=== PATIENT | female | born 1955 | race Caucasian/White ===

== ENCOUNTER → 2020-11-22 09:43 | Outpatient (BNVA) | payer OTHER, SELFPAY | PROVIDERS: PCP Internal Medicine; Visit Provider Nurse Practitioner Gerontology ==

== ENCOUNTER → 2021-01-30 12:47 | Outpatient (BNVA) | payer MEDICARE, SELFPAY | PROVIDERS: PCP Internal Medicine; Visit Provider Nurse Practitioner Gerontology | DX: E11.65 Type 2 diabetes mellitus with hyperglycemia (principal); E11.40 Type 2 diabetes mellitus with diabetic neuropathy, unspecified; Z79.4 Long term (current) use of insulin; I10 Essential (primary) hypertension; E78.5 Hyperlipidemia, unspecified; E66.01 Morbid (severe) obesity due to excess calories; Z68.42 Body mass index [BMI] 45.0-49.9, adult | CPT/HCPCS: 82947; 99212 ==

== ENCOUNTER → 2021-03-06 07:40 | Outpatient (BNVA) | payer MEDICARE, SELFPAY | PROVIDERS: PCP Internal Medicine; Visit Provider Internal Medicine | CPT/HCPCS: Q3014 ==

== ENCOUNTER 2021-03-10 07:49 | Outpatient (REF) | payer MEDICARE, SELFPAY ==
[2021-03-10 11:09] LABS: Creatinine Urine 70.43 mg/dL; Microalbum/Creatinine Ratio Ur 9.9 ug/mg cr
[2021-03-10 11:10] LABS: Alanine Aminotransferase 28 U/L (0-31); Albumin Level 4.3 g/dL (3.5-5.0); Alkaline Phosphatase 101 U/L (39-117); Anion Gap 14 (12-20); Aspartate Amino Transferase 19 U/L (5-31); Bilirubin Total 0.7 mg/dL (0.0-1.0); Blood Urea Nitrogen 31 mg/dL (9-16); Calcium 9.3 mg/dL (8.4-10.2); Carbon Dioxide 24 mmol/L (22-29); Chloride 106 mmol/L (96-108); Cholesterol 155 mg/dL; Estimated Glomerular Filt Rate > 60; Glucose Fasting 120 mg/dL (60-99); HDL Cholesterol 41 mg/dL; LDL Cholesterol Calculated 82 mg/dl; Potassium 4.9 mmol/L (3.3-5.1); Sodium 139 mmol/L (135-145); Total Protein 6.9 g/dL (6.5-8.0); Triglycerides 164 mg/dL
[2021-03-10 12:08] LABS: Vitamin B12 495 pg/mL (200-900)
== END 2021-03-10 07:50 | disposition home or self-care (01) ==
LOC: HO.WFDLDS 07:49
PROVIDERS: Visit Provider Nurse Practitioner Gerontology
DX: E11.40 Type 2 diabetes mellitus with diabetic neuropathy, unspecified (principal); Z79.4 Long term (current) use of insulin
CPT/HCPCS: 36415; 80053; 80061; 82043; 82306; 82607

== ENCOUNTER 2021-03-12 14:16 | Outpatient (REF) | payer MEDICARE, SELFPAY ==
--- NOTE | ~2021-03-12 | US_ITS ---
EXAMINATION: US THYROID CLINICAL INFORMATION: Nontoxic single thyroid nodule. COMPARISON: None TECHNIQUE: Linear transducer sykes-scale and color Doppler examination with attention to the region of the thyroid. FINDINGS: SIZE: Measurements of the thyroid lobes and nodules are given in sagittal, anteroposterior and transverse dimensions respectively. Right Thyroid Lobe: 4.9 x 2.6 x 1.8 cm, volume 12.1 mL. Parenchyma: The gland echotexture is heterogeneous. Thyroid vascularity is normal. Left Thyroid Lobe: 5.2 x 2.1 x 2.2 cm, volume 12.5 mL. Parenchyma: The gland echotexture is heterogeneous. Thyroid vascularity is normal. Isthmus: 0.5 cm in maximum AP dimension. Estimated total number of nodules greater than or equal to 1 cm: 3. Credit Collections Analyst nodules are described as follows: 1. Location: Left lower pole. Size: 1.7 x 1.4 x 1.7 cm, volume 2.2 mL. Nodule characteristics: Composition: Solid/almost completely solid (2). Echogenicity: Hyperechoic (1). Shape: Not taller than wide (0). Margins: Smooth (0). Echogenic Foci: None (0). ACR TI-RADS total points: 3 ACR TI-RADS category: 3 2. Location: Left upper pole. Size: 1.3 x 0.6 x 0.7 cm, volume 0.3 mL. Nodule characteristics: Composition: Solid/almost completely solid (2). Echogenicity: Isoechoic (1). Shape: Not taller than wide (0). Margins: Ill-defined (0). Echogenic Foci: None (0). ACR TI-RADS total points: 3 ACR TI-RADS category: 3 3. Location: Right mid pole. Size: 3.7 x 2.0 x 1.6 cm, volume 6.2 mL. Nodule characteristics: Composition: Solid/almost completely solid (2). Echogenicity: Isoechoic (1). Shape: Taller than wide (3). Margins: Ill-defined (0). Echogenic Foci: None (0). ACR TI-RADS total points: 6 ACR TI-RADS category: 4 NODES: No lymphadenopathy is seen in the tissue surrounding the thyroid gland. US/US thyroid IMPRESSION: Enlarged heterogeneous thyroid gland with bilateral thyroid nodules. Fine needle aspiration of the largest nodule in the right mid lobe and continued ultrasound follow-up recommended as described below. ACR TI-RADS RECOMMENDATION REFERENCE: Ultrasound-guided fine-needle aspiration, followup ultrasound, no further follow up. * TR1 (0 point) and TR 2 (2 points): No FNA or follow up * TR3 (3 points): FNA if more than or equal to 2.5 cm in maximum dimension, followup ultrasound in 1, 3 and 5 years if 1.5 to 2.4 cm in maximum dimension. * TR4 (4-6 points): FNA if more than or equal to 1.5 cm in maximum dimension, followup ultrasound in 1, 2, 3 and 5 years if 1 to 1.4 cm in maximum dimension. * TR5 (more than or equal to 7 points): FNA if more than or equal to 1 cm in maximum dimension, followup ultrasound every year for 5 years if 0.5 to 0.9 cm in maximum dimension. * TR3, TR4 or TR5 nodules that are below the size threshold for follow up receive no follow up.
== END 2021-03-12 14:17 | disposition home or self-care (01) ==
LOC: HO.US 14:16
PROVIDERS: Visit Provider Internal Medicine
DX: E04.1 Nontoxic single thyroid nodule (principal)
CPT/HCPCS: 76536

== ENCOUNTER → 2021-03-17 07:53 | Outpatient (BNVA) | payer MEDICARE, SELFPAY | PROVIDERS: PCP Internal Medicine; Visit Provider Nurse Practitioner Gerontology | DX: E11.65 Type 2 diabetes mellitus with hyperglycemia (principal); E11.40 Type 2 diabetes mellitus with diabetic neuropathy, unspecified; Z79.4 Long term (current) use of insulin; I10 Essential (primary) hypertension; E78.5 Hyperlipidemia, unspecified; E66.01 Morbid (severe) obesity due to excess calories; Z68.42 Body mass index [BMI] 45.0-49.9, adult | CPT/HCPCS: 82947; 99212 ==

== ENCOUNTER 2021-03-18 08:12 | Outpatient (REF) | payer MEDICARE, SELFPAY ==
[2021-03-18 11:37] LABS: Free T4 (Free Thyroxine) 0.89 ng/dL (0.71-1.85); Thyroid Stimulating Hormone 0.63 uIU/mL (0.32-4.0)
== END 2021-03-18 08:13 | disposition home or self-care (01) ==
LOC: HO.WFDLDS 08:12
PROVIDERS: Visit Provider Internal Medicine
DX: E04.1 Nontoxic single thyroid nodule (principal)
CPT/HCPCS: 36415; 84439; 84443

== ENCOUNTER 2021-04-24 08:41 | Outpatient (REF) | payer MEDICARE, SELFPAY ==
--- NOTE | 2021-04-24 09:32 | P.BOP_ITS ---
Brief Operative Note Date of Service: 04/24/21 Surgeon: Mariama Severino, DO This is doctor Mariama Severino. This is an ultrasound-guided fine-needle aspiration report. Date of Examination: 04/24/2021 Indication: Multinodular Thyroid Porcedure: Procedure was explained to the patient. Alternatives, the risk and benefits were discussed. Written consent was obtained. A time-out was also obtained. After sterile preparation, fine-needle aspiration of 1.7 cm left lower pole thyroid nodule was performed using direct ultrasound guidance to confirm accurate needle placement. Three aspirations were made using 25 gauge needles. Samples were submitted for cytology. One pass was dedicated for [employer] sequencing health safety and environment manager testing. The patient tolerated the procedure well. Aftercare instructions were provided. Impression: Uncomplicated fine needle aspiration biopsy of a 1.7 cm left lower pole thyroid nodule under ultrasound guidance. Was an Leather Belt Shaper used for this Procedure?: No Estimated blood loss (mL): 0
[2021-04-24] MEDS: Lidocaine HCl 1 % MPF 5 ML VIAL SUBCUT (11:10)
== END 2021-04-24 08:42 | disposition home or self-care (01) ==
LOC: HO.US 08:41
PROVIDERS: Visit Provider Internal Medicine
DX: E04.1 Nontoxic single thyroid nodule (principal)
CPT/HCPCS: 10005; 88172; 88173

== ENCOUNTER 2021-04-28 06:59 | Outpatient (REF) | payer MEDICARE, SELFPAY ==
[2021-04-28 09:23] LABS: Thyroid Stimulating Hormone 0.27 uIU/mL (0.32-4.0)
[2021-04-29 21:26] LABS: Thyroglobulin Antibodies <1 IU/mL (< or = 1); Thyroid Peroxidase Antibodies <1 IU/mL (<9)
[2021-04-29 23:27] LABS: Adrenocorticotropic Hormone <5 pg/mL (6-50)
[2021-05-06 19:11] LABS: Dexamethasone 424 ng/dL
== END 2021-04-28 07:00 | disposition home or self-care (01) ==
LOC: HO.LAB 06:59
PROVIDERS: PCP Internal Medicine; Visit Provider Internal Medicine
DX: E66.01 Morbid (severe) obesity due to excess calories (principal)
CPT/HCPCS: 36415; 80299; 82024; 82533; 84443; 86376; 86800

== ENCOUNTER → 2021-05-08 13:12 | Outpatient (BNVA) | payer MEDICARE, SELFPAY | PROVIDERS: PCP Internal Medicine; Visit Provider Internal Medicine | DX: E04.1 Nontoxic single thyroid nodule (principal); I10 Essential (primary) hypertension; E78.5 Hyperlipidemia, unspecified; E11.42 Type 2 diabetes mellitus with diabetic polyneuropathy; E11.65 Type 2 diabetes mellitus with hyperglycemia; E55.9 Vitamin D deficiency, unspecified; E66.01 Morbid (severe) obesity due to excess calories; Z68.42 Body mass index [BMI] 45.0-49.9, adult | CPT/HCPCS: Q3014 ==

== ENCOUNTER → 2021-10-09 09:26 | Outpatient (BNVA) | payer MEDICARE, SELFPAY | PROVIDERS: PCP Internal Medicine; Visit Provider Nurse Practitioner Gerontology | DX: E11.65 Type 2 diabetes mellitus with hyperglycemia (principal); E11.40 Type 2 diabetes mellitus with diabetic neuropathy, unspecified; E78.5 Hyperlipidemia, unspecified; E66.01 Morbid (severe) obesity due to excess calories; I10 Essential (primary) hypertension; R79.89 Other specified abnormal findings of blood chemistry; Z79.4 Long term (current) use of insulin; Z68.42 Body mass index [BMI] 45.0-49.9, adult | CPT/HCPCS: Q3014 ==

== ENCOUNTER 2021-10-15 07:40 | Outpatient (REF) | payer MEDICARE, SELFPAY ==
[2021-10-15 11:56] LABS: Estimated Average Glucose 183 mg/dL
[2021-10-15 12:26] LABS: Free T4 (Free Thyroxine) 0.92 ng/dL (0.71-1.85); Thyroid Stimulating Hormone 1.28 uIU/mL (0.32-4.0)
== END 2021-10-15 07:41 | disposition home or self-care (01) ==
LOC: HO.WFDLDS 07:40
PROVIDERS: Internal Medicine; Visit Provider Nurse Practitioner Gerontology
DX: E04.1 Nontoxic single thyroid nodule (principal); E11.40 Type 2 diabetes mellitus with diabetic neuropathy, unspecified; Z79.4 Long term (current) use of insulin
CPT/HCPCS: 36415; 83036; 84439; 84443

== ENCOUNTER → 2021-12-18 12:50 | Outpatient (BNVA) | payer MEDICARE, SELFPAY | PROVIDERS: PCP Internal Medicine; Visit Provider Internal Medicine | DX: E04.1 Nontoxic single thyroid nodule (principal); E55.9 Vitamin D deficiency, unspecified; E66.01 Morbid (severe) obesity due to excess calories | CPT/HCPCS: Q3014 ==

== ENCOUNTER → 2022-01-12 09:43 | Outpatient (BNVA) | payer MEDICARE, SELFPAY | PROVIDERS: PCP Internal Medicine; Visit Provider Nurse Practitioner Gerontology | DX: E11.40 Type 2 diabetes mellitus with diabetic neuropathy, unspecified (principal); E11.65 Type 2 diabetes mellitus with hyperglycemia; E78.5 Hyperlipidemia, unspecified; E66.01 Morbid (severe) obesity due to excess calories; I10 Essential (primary) hypertension; Z68.42 Body mass index [BMI] 45.0-49.9, adult; Z79.4 Long term (current) use of insulin | CPT/HCPCS: 82947; 83036; 99212 ==

== ENCOUNTER 2022-01-14 07:03 | Outpatient (REF) | payer MEDICARE, SELFPAY ==
[2022-01-14 12:08] LABS: Estimated Average Glucose 197 mg/dL; Hemoglobin A1c % 8.5 %
[2022-01-14 12:14] LABS: Alanine Aminotransferase 23 U/L (0-31); Albumin Level 4.1 g/dL (3.5-5.0); Alkaline Phosphatase 111 U/L (39-117); Anion Gap 13 (12-20); Aspartate Amino Transferase 16 U/L (5-31); Bilirubin Total 0.5 mg/dL (0.0-1.0); Blood Urea Nitrogen 29 mg/dL (9-16); Calcium 9.6 mg/dL (8.4-10.2); Carbon Dioxide 23 mmol/L (22-29); Chloride 109 mmol/L (96-108); Cholesterol 150 mg/dL; Estimated Glomerular Filt Rate > 60; Glucose Random 160 mg/dL (60-115); HDL Cholesterol 38 mg/dL; LDL Cholesterol Calculated 83 mg/dl; Potassium 5.1 mmol/L (3.3-5.1); Sodium 140 mmol/L (135-145); Total Protein 6.7 g/dL (6.5-8.0); Triglycerides 149 mg/dL
[2022-01-14 12:22] LABS: Thyroid Stimulating Hormone 1.28 uIU/mL (0.32-4.0)
[2022-01-14 13:47] LABS: Creatinine Urine 66.95 mg/dL; Microalbum/Creatinine Ratio Ur 10.4 ug/mg cr
[2022-01-15 07:10] LABS: LDL Cholesterol Direct 93 mg/dL (<100)
== END 2022-01-14 07:04 | disposition home or self-care (01) ==
LOC: HO.WFDLDS 07:03
PROVIDERS: Visit Provider Nurse Practitioner Gerontology
DX: E11.40 Type 2 diabetes mellitus with diabetic neuropathy, unspecified (principal); Z79.4 Long term (current) use of insulin
CPT/HCPCS: 36415; 80053; 80061; 82043; 83036; 83721; 84439; 84443

== ENCOUNTER 2022-07-03 15:57 | Outpatient (REF) | payer MEDICARE, SELFPAY ==
--- NOTE | ~2022-07-03 | US_ITS ---
EXAMINATION: US THYROID CLINICAL INFORMATION: Nontoxic single thyroid nodule. COMPARISON: Thyroid ultrasound 03/12/2021. Ultrasound-guided thyroid biopsy 04/24/2021. TECHNIQUE: Linear transducer grayscale and color Doppler examination with attention to the region of the thyroid. FINDINGS: SIZE: Measurements of the thyroid lobes and nodules are given in sagittal, anteroposterior and transverse dimensions respectively. Right Thyroid Lobe: 5.7 x 2.2 x 1.8 cm, volume 11.8 mL. Previously 4.9 x 2.6 x 1.8 cm, volume 12.1 mL. Parenchyma: The gland echotexture is heterogeneous. Thyroid vascularity is normal. Left Thyroid Lobe: 5.5 x 2.1 x 2.1 cm, volume 12.7 mL. Previously 5.2 x 2.1 x 2.2 cm, volume 12.5 mL. Parenchyma: The gland echotexture is heterogeneous. Thyroid vascularity is normal. Isthmus: 0.6 cm in maximum AP dimension. Previously 0.5 cm. Estimated total number of nodules greater than or equal to 1 cm: 2. comparison with previous exam is difficult. Measurement differences may be due to interobserver variation of nodule borders. Cell Repairer nodules are described as follows: 1. Location: Left lower pole. Size: 1.1 x 0.9 x 0.8 cm, volume 0.4 mL. Previously: 1.7 x 1.4 x 1.7 cm, volume 2.2 mL. Nodule characteristics: Composition: Solid (2). Echogenicity: Hyperechoic (1). Shape: Not taller than wide (0). Margins: Smooth (0). Echogenic Foci: None (0). ACR TI-RADS total points: 3 Previous: 3 ACR TI-RADS category: 3 Previous: 3 Significant change in size (>/= 20% in 2 dimensions and minimal increase of 2 mm or 50% or greater increase in volume): Change in features: Change in ACR TI-RADS risk category: 2. Location: Right mid pole. Size: 2.5 x 1.8 x 1.2 cm, volume 2.8 mL. Previously: 3.7 x 2.0 x 1.6 cm, volume 6.2 mL. Nodule characteristics: Composition: Solid (2). Echogenicity: Isoechoic (1). Shape: Taller than wide (3). Margins: Ill-defined (0). Echogenic Foci: None (0). ACR TI-RADS total points: 6 Previous: 6 ACR TI-RADS category: 4 Previous: 4 Significant change in size (>/= 20% in 2 dimensions and minimal increase of 2 mm or 50% or greater increase in volume): Change in features: Change in ACR TI-RADS risk category: 3. Location: Isthmus/upper pole left. Size: 0.3 x 0.3 x 0.4 cm, volume 0.02 mL. Previously: Not documented. Nodule characteristics: Composition: Solid (2). Echogenicity: Hypoechoic (2). Shape: Not taller than wide (0). Margins: Smooth (0). Echogenic Foci: None (0). ACR TI-RADS total points: 4 ACR TI-RADS category: 4 4. Location: Left mid pole. Size: 0.6 x 0.7 x 0.8 cm, volume 0.16 mL. Previously: Not documented. Nodule characteristics: Composition: Solid/almost completely solid (2). Echogenicity: Hypoechoic (2). Shape: Not taller than wide (0). Margins: Smooth (0). Echogenic Foci: None (0). ACR TI-RADS total points: 4 ACR TI-RADS category: 4 NODES: No lymphadenopathy is seen in the tissue surrounding the thyroid gland. US/US thyroid IMPRESSION: Enlarged heterogeneous thyroid gland. Bilateral thyroid nodules. Comparison with previous exam is difficult. Measurement differences may be due to interobserver variation. ACR TI-RADS RECOMMENDATION REFERENCE: Ultrasound-guided fine-needle aspiration, followup ultrasound, no further follow up. * TR1 (0 point) and TR 2 (2 points): No FNA or follow up * TR3 (3 points): FNA if more than or equal to 2.5 cm in maximum dimension, followup ultrasound in 1, 3 and 5 years if 1.5 to 2.4 cm in maximum dimension. * TR4 (4-6 points): FNA if more than or equal to 1.5 cm in maximum dimension, followup ultrasound in 1, 2, 3 and 5 years if 1 to 1.4 cm in maximum dimension. * TR5 (more than or equal to 7 points): FNA if more than or equal to 1 cm in maximum dimension, followup ultrasound every year for 5 years if 0.5 to 0.9 cm in maximum dimension. * TR3, TR4 or TR5 nodules that are below the size threshold for follow up receive no follow up.
== END 2022-07-03 15:58 | disposition home or self-care (01) ==
LOC: HO.US 15:57
PROVIDERS: Visit Provider Internal Medicine
DX: E04.1 Nontoxic single thyroid nodule (principal)
CPT/HCPCS: 76536

== ENCOUNTER 2022-08-21 11:53 | Outpatient (REF) | payer MEDICARE, SELFPAY ==
[2022-08-21 15:54] LABS: Free T4 (Free Thyroxine) 0.85 ng/dL (0.71-1.85); Thyroid Stimulating Hormone 1.06 uIU/mL (0.32-4.0)
== END 2022-08-21 11:54 | disposition home or self-care (01) ==
LOC: HO.WFDLDS 11:53
PROVIDERS: Visit Provider Internal Medicine
DX: E04.1 Nontoxic single thyroid nodule (principal)
CPT/HCPCS: 36415; 84439; 84443

== ENCOUNTER → 2022-08-24 10:43 | Outpatient (BNVA) | payer MEDICARE, SELFPAY | PROVIDERS: PCP Internal Medicine; Visit Provider Internal Medicine | DX: E04.1 Nontoxic single thyroid nodule (principal); E55.9 Vitamin D deficiency, unspecified; E66.01 Morbid (severe) obesity due to excess calories; Z68.42 Body mass index [BMI] 45.0-49.9, adult | CPT/HCPCS: 99212 ==

== ENCOUNTER → 2022-11-11 08:10 | Outpatient (BNVA) | payer MEDICARE, SELFPAY | PROVIDERS: PCP Internal Medicine; Visit Provider Internal Medicine | DX: E04.1 Nontoxic single thyroid nodule (principal); E55.9 Vitamin D deficiency, unspecified; E66.01 Morbid (severe) obesity due to excess calories; Z68.42 Body mass index [BMI] 45.0-49.9, adult | CPT/HCPCS: 82947; 83036; 99212 ==

== ENCOUNTER → 2023-02-10 08:24 | Outpatient (BNVA) | payer MEDICARE, SELFPAY | PROVIDERS: PCP Internal Medicine; Visit Provider Internal Medicine | DX: E11.65 Type 2 diabetes mellitus with hyperglycemia (principal); E78.5 Hyperlipidemia, unspecified; E04.1 Nontoxic single thyroid nodule; E55.9 Vitamin D deficiency, unspecified; E66.01 Morbid (severe) obesity due to excess calories; I10 Essential (primary) hypertension; Z79.4 Long term (current) use of insulin | CPT/HCPCS: 82947; 83036; 99212 ==

== ENCOUNTER 2023-02-10 09:34 | Outpatient (REF) | payer MEDICARE, SELFPAY ==
[2023-02-10 10:57] LABS: Alanine Aminotransferase 25 U/L (0-31); Albumin Level 3.9 g/dL (3.5-5.0); Alkaline Phosphatase 110 U/L (39-117); Anion Gap 12 (12-20); Aspartate Amino Transferase 19 U/L (5-31); Bilirubin Total 0.6 mg/dL (0.0-1.0); Blood Urea Nitrogen 21 mg/dL (9-16); Calcium 8.9 mg/dL (8.4-10.2); Carbon Dioxide 23 mmol/L (22-29); Chloride 108 mmol/L (96-108); Estimated Glomerular Filt Rate > 60; Glucose Random 190 mg/dL (60-115); Potassium 4.2 mmol/L (3.3-5.1); Sodium 139 mmol/L (135-145); Total Protein 6.2 g/dL (6.5-8.0)
== END 2023-02-10 09:35 | disposition home or self-care (01) ==
LOC: HO.10HDL 09:34
PROVIDERS: Visit Provider Internal Medicine
DX: E11.65 Type 2 diabetes mellitus with hyperglycemia (principal); Z79.4 Long term (current) use of insulin
CPT/HCPCS: 36415; 80053

== ENCOUNTER 2023-05-20 07:57 | Outpatient (REF) | payer MEDICARE, SELFPAY ==
[2023-05-20 14:19] LABS: Estimated Average Glucose 166 mg/dL; Hemoglobin A1c % 7.4 %
[2023-05-20 14:28] LABS: Alanine Aminotransferase 29 U/L (0-31); Albumin Level 4.1 g/dL (3.5-5.0); Alkaline Phosphatase 91 U/L (39-117); Anion Gap 15 (12-20); Aspartate Amino Transferase 22 U/L (5-31); Bilirubin Total 0.6 mg/dL (0.0-1.0); Blood Urea Nitrogen 21 mg/dL (9-16); Calcium 9.7 mg/dL (8.4-10.2); Carbon Dioxide 23 mmol/L (22-29); Chloride 106 mmol/L (96-108); Cholesterol 154 mg/dL; Estimated Glomerular Filt Rate > 60; Free T4 (Free Thyroxine) 0.86 ng/dL (0.71-1.85); Glucose Random 154 mg/dL (60-115); HDL Cholesterol 41 mg/dL; LDL Cholesterol Calculated 81 mg/dl; Potassium 4.5 mmol/L (3.3-5.1); Sodium 139 mmol/L (135-145); Thyroid Stimulating Hormone 1.34 uIU/mL (0.32-4.0); Total Protein 7.1 g/dL (6.5-8.0); Triglycerides 164 mg/dL; Vitamin D 25-OH Total 34.2 ng/mL (>30)
[2023-05-22 13:29] LABS: LDL Cholesterol Direct 90 mg/dL (<100)
== END 2023-05-20 07:58 | disposition home or self-care (01) ==
LOC: HO.WFDLDS 07:57
PROVIDERS: Visit Provider Internal Medicine
DX: E04.1 Nontoxic single thyroid nodule (principal); E55.9 Vitamin D deficiency, unspecified; E11.65 Type 2 diabetes mellitus with hyperglycemia; Z79.4 Long term (current) use of insulin
CPT/HCPCS: 36415; 80053; 80061; 82306; 83036; 83721; 84439; 84443

== ENCOUNTER 2023-06-02 07:36 | Outpatient (AMB) | payer MEDICARE, SELFPAY ==
--- NOTE | 2023-06-02 07:37 | A.OFFVIS_ITS ---
Intake Intake Visit Reasons: F/U T2DM Needs 1 hour Allergies exenatide [Byetta] Allergy (Unknown, Verified 06/02/23 07:48) nausea rosuvastatin [Crestor] Allergy (Unknown, Verified 06/02/23 07:48) Unknown dulaglutide [From Trulicity] Adverse Reaction (Mild, Verified 06/02/23 07:48) Nausea lisinopril Adverse Reaction (Unknown, Verified 06/02/23 07:48) Cough dust, trees Allergy (Unknown, Uncoded 06/02/23 07:48) rhinitis Medication List - Last Reconciled 06/02/23 by Mariama Severino DO amlodipine 10 mg PO DAILY atorvastatin 40 mg PO BEDTIME blood sugar diagnostic ([place] Verio test strips) four times a day blood-glucose meter ([place] Verio Reflect Meter) CHECK BLOOD GLUCOSE FOUR TIMES A DAY fluticasone propionate 50 mcg/actuation intranasal insulin NPH and regular human 100 unit/mL (70-30) (Humulin 70/30 U-100 Insulin) 55 units before breakfast, 50 units before dinner subcut 2 times a day; insulin syringe-needle U-100 (BD Insulin Syringe Ultra-Fine) As directed twice a day lancets (FreeStyle Lancets) As directed four times a day lancets (OneTouch Delica Lancets) As directed 4 x/day meloxicam 15 mg PO DAILY PRN metformin 500 mg PO DAILY 30 days metoprolol succinate ER 50 mg PO DAILY olmesartan 40 mg PO DAILY omeprazole 20 mg PO DAILY PRN pen needle, diabetic As directed semaglutide (Ozempic) 0.25 mg (0.368 mL) subcut QWEEK spironolactone 25 mg PO DAILY tizanidine 2 mg PO TID zolpidem 10 mg PO BEDTIME PRN HPI HPI Comments History of Present Illness Details 67 YO F with PMHx T2DM, HTN, HLD as well as a multinodular thyroid who is seen in F/U. She was previously followed by Radha De La Cruz. 1) T2DM: Initially diagnosed with T2DM in 1999. Was initially started on treatment with Metformin. Current regimen Metformin 500 mg PO daily, Ozempic 0.25 mg once a week and Humulin 70/30 50-55 BID. Checks sugars 1-2 times per day. Unable to download sugars today. Sugars are at goal am fasting. Reports low sugars never. Treats lows with juice or rapid sugar. Most recent A1C: 7.4% 05/20/2023, down from prior of 8.1%. Family history of T2DM in parents and siblings. Has eyes checked yearly, has retinopathy. Sees ophtho every 6 months for her retinal detachment. Has neuropathy, last foot exam 02/10/2023, sees podiatry. Denies nephropathy, on Olmesartan 40 mg PO daily. UAC 10.4 as measured on 01/14/2022. Has HLD, on Atorvastatin 40 mg PO daily. Last LDL 90 as measured on 05/20/2023. Denies CAD. Diet: Does not follow a low carbohydrate diet Weight: Stable Had diabetes education. 2) Multinodular Thyroid: She had an episode of palpitations with lightheadedness which prompted her to go to the ED.? She had a CTA of the head and neck 01/17/2021 which revealed a 1.3 cm hypodense nodule within the L lobe of the thyroid.? She was subsequently referred to Endocrinology. She underwent FNA biopsy of her LLP 1.7 cm thyroid nodule 04/24/2021 with benign cytology. Denies any compressive symptoms.? Also denies any symptoms of hyper or hypothyroidism. Denies any history of head or neck irradiation.? Reports her Mother had a goiter and had thyroid surgery, but she is unsure if there was any cancer.? She had labs that showed a low TSH, but this was completed immediately after her FNA biopsy.? Repeat labs WNL. She also had imaging that revealed a dorsocervical fat pad and concern for cus timothy's disease.? She underwent a 1 mg overnight DSST which was completely WNL. Thyroid US: 07/03/2022 Right Thyroid Lobe: 5.7 x 2.2 x 1.8 cm, volume 11.8 mL. Previously 4.9 x 2.6 x 1.8 cm, volume 12.1 mL. Parenchyma: The gland echotexture is heterogeneous. Thyroid vascularity is normal. Left Thyroid Lobe: 5.5 x 2.1 x 2.1 cm, volume 12.7 mL. Previously 5.2 x 2.1 x 2.2 cm, volume 12.5 mL. Parenchyma: The gland echotexture is heterogeneous. Thyroid vascularity is normal. Isthmus: 0.6 cm in maximum AP dimension. Previously 0.5 cm. Estimated total number of nodules greater than or equal to 1 cm: 2. comparison with previous exam is difficult. Measurement differences may be due to interobserver variation of nodule borders. Reconciliation Coordinator nodules are described as follows: 1.? Location: Left lower pole. ?? ? Size: 1.1 x 0.9 x 0.8 cm, volume 0.4 mL. ?? ? Previously: 1.7 x 1.4 x 1.7 cm, volume 2.2 mL. ?? ? Nodule characteristics: ?? ? Composition: Solid (2). ?? ? Echogenicity: Hyperechoic (1). ?? ? Shape: Not taller than wide (0). ?? ? Margins: Smooth (0). ?? ? Echogenic Foci: None (0). ?? ? ACR TI-RADS total points: 3 Previous: 3 ?? ? ACR TI-RADS category: 3 Previous: 3 ? Significant change in size (>/= 20% in 2 dimensions and minimal increase of 2 mm or 50% or greater increase in volume): ?? ? Change in features: ?? ? Change in ACR TI-RADS risk category: 2.? Location: Right mid pole. ?? ? Size: 2.5 x 1.8 x 1.2 cm, volume 2.8 mL. ?? ? Previously: 3.7 x 2.0 x 1.6 cm, volume 6.2 mL. ?? ? Nodule characteristics: ?? ? Composition: Solid (2). ?? ? Echogenicity: Isoechoic (1). ?? ? Shape: Taller than wide (3). ?? ? Margins: Ill-defined (0). ?? ? Echogenic Foci: None (0). ?? ? ACR TI-RADS total points: 6 Previous: 6 ?? ? ACR TI-RADS category: 4 Previous: 4 ? Significant change in size (>/= 20% in 2 dimensions and minimal increase of 2 mm or 50% or greater increase in volume): ?? ? Change in features: ?? ? Change in ACR TI-RADS risk category: 3.? Location: Isthmus/upper pole left. ?? ? Size: 0.3 x 0.3 x 0.4 cm, volume 0.02 mL. ?? ? Previously: Not documented. ?? ? Nodule characteristics: ?? ? Composition: Solid (2). ?? ? Echogenicity: Hypoechoic (2). ?? ? Shape: Not taller than wide (0). ?? ? Margins: Smooth (0). ?? ? Echogenic Foci: None (0). ?? ? ACR TI-RADS total points: 4 ?? ? ACR TI-RADS category: 4 ?? ? 4.? Location: Left mid pole. ?? ? Size: 0.6 x 0.7 x 0.8 cm, volume 0.16 mL. ?? ? Previously: Not documented. ?? ? Nodule characteristics: ?? ? Composition: Solid/almost completely solid (2). ?? ? Echogenicity: Hypoechoic (2). ?? ? Shape: Not taller than wide (0). ?? ? Margins: Smooth (0). ?? ? Echogenic Foci: None (0). ?? ? ACR TI-RADS total points: 4 ?? ? ACR TI-RADS category: 4 ?? ? NODES: No lymphadenopathy is seen in the tissue surrounding the thyroid gland. Labs: Laboratory Tests 01/14/22 05/20/23 05/20/23 07:10 07:58 07:58 Creatinine 0.83 Estimated GFR > 60 Hemoglobin A1c % 7.4 Triglycerides 164 Cholesterol 154 LDL Cholesterol Di rect HDL Cholesterol 41 25-OH Vitamin D To chepe 34.2 TSH 1.34 Free T4 0.86 Microalb/Creat Rat io 10.4 05/20/23 07:58 Creatinine Estimated GFR Hemoglobin A1c % Triglycerides Cholesterol LDL Cholesterol Di rect 90 HDL Cholesterol 25-OH Vitamin D To chepe TSH Free T4 Microalb/Creat Rat io [facility] Medical History BMI 45.0-49.9, adult Chronic sinusitis Depression Disc degeneration Essential hypertension Fatty liver Gastroenteritis GERD (gastroesophageal reflux disease) HLD (hyperlipidemia) HTN (hypertension) Hyperlipidemia LDL goal <100 Incontinence Insomnia Morbid obesity Multiple lipomas Obesity due to excess calories Rhinitis Rosacea Thyroid nodule Type 2 diabetes mellitus with diabetic neuropathy, unspecified Type 2 diabetes mellitus with hyperglycemia Vitamin D deficiency Surgical History Hx of cataract surgery Hx of section Hx of colonoscopy Hx of mammogram Family History Mother Goiter Father No problems noted. Maternal Uncle Diabetes Maternal Aunt Diabetes Sister Healthy adult Son Healthy adult Social History Household Members: Children Alcohol intake: never Patient Tobacco Use Status: Never used Tobacco Assessment & Plan Assessment & Plan (1) Type 2 diabetes mellitus with hyperglycemia: Code(s): E11.65 - Type 2 diabetes mellitus with hyperglycemia Qualifiers: Diabetes mellitus fpc insulin use: with industrial maintenance repairer helper use Qualified Code(s): E11.65 - Type 2 diabetes mellitus with hyperglycemia; Z79.4 - dressmaker garment fitter (current) use of insulin Plan: T2DM is with improved control. She continues to drink soda daily and I suspect this is leading to some GI upset with the low dose Ozempic. I advised her to stop drinking soda and only drink water and unsweetened beverages. We will reassess at her next visit if GI symptoms have improved, and if so we will increase the Ozempic and attempt to decrease the insulin. Goal for next visit if GLP-1 is tolerated is to optimize metformin, then add SGLT-2 and titrate down on insulin as tolerated. I will likely switch her to a BBI regimen and off of the 70/30 mixture at the next visit as well. We reviewed that we will approach her T2DM in a stepwise fashion, and to not get frustrated, as we will continue to see improvements at each visit. All of her questions were answered. She is in agreement with this plan of care. I spent 20 minutes in reviewing the record, seeing the patient and documenting in the medical record, including 5 minutes on the phone with the Patient. (2) HLD (hyperlipidemia): Code(s): E78.5 - Hyperlipidemia, unspecified Qualifiers: Hyperlipidemia type: unspecified Qualified Code(s): E78.5 - Hyperlipidemia, unspecified Plan: LDL at goal, no changes. (3) HTN (hypertension): Code(s): I10 - Essential (primary) hypertension Qualifiers: Hypertension type: unspecified Qualified Code(s): I10 - Essential (primary) hypertension Plan: Needs updated [facility]. This has been ordered. (4) Thyroid nodule: Code(s): E04.1 - Nontoxic single thyroid nodule Plan: Patient with a thyroid nodule incidentally noted on her recent CT of the neck. She underwent FNA biopsy of her LLP 1.7 cm thyroid nodule 04/24/2021 with benign cytology. Images of her thyroid US dated 07/03/2022 were independently reviewed and what was measured as a 2.5 cm L mid pole nodule is just an area of heterogeneity and not a true nodule. No indication for repeat FNA biopsy at this time. We will continue with yearly surveillance US and labs. She will be due for a repeat thyroid US 07/2023. (5) Vitamin D deficiency: Code(s): E55.9 - Vitamin D deficiency, unspecified Plan: Vitamin D levels at goal. No changes. (6) Morbid obesity: Code(s): E66.01 - Morbid (severe) obesity due to excess calories Plan: Patient with a dorsocervical fat pad with concern for westley's phenotype. She completed a 1 mg overnight DSST with results completely WNL, which rules out westley's disease. This phenotype is related solely to her obesity. Will continue to encourage weight loss. Orders: Orders US thyroid 1 Month E04.1 - Nontoxic single thyroid nodule Telehealth Telehealth Location of provider rendering services: practice address Location of patient: address on file Patient Identification confirmed using: Name, : Yes Telehealth method: voice only Patient verbally consented to treatment: Yes Patient verbally consented to billing insurance company: Yes Patient informed of any privacy concerns related to visit: Yes Coding Level of Care Code Tele Est Pt Level 3 (54629) Diagnoses Type 2 diabetes mellitus with hyperglycemia E11.65; Z79.4 Diabetes mellitus fpc insulin use: with industrial maintenance repairer helper use HLD (hyperlipidemia) E78.5 Hyperlipidemia type: unspecified HTN (hypertension) I10 Hypertension type: unspecified Thyroid nodule E04.1 Vitamin D deficiency E55.9 Morbid obesity E66.01
== END 2023-06-02 08:15 | disposition home or self-care (01) ==
LOC: HO.ENCR 07:36
PROVIDERS: PCP Internal Medicine; Visit Provider Internal Medicine
DX: E11.65 Type 2 diabetes mellitus with hyperglycemia (principal); Z79.4 Long term (current) use of insulin; E78.5 Hyperlipidemia, unspecified; I10 Essential (primary) hypertension; E04.1 Nontoxic single thyroid nodule; E55.9 Vitamin D deficiency, unspecified; E66.01 Morbid (severe) obesity due to excess calories
CPT/HCPCS: 99443

== ENCOUNTER → 2023-06-02 07:36 | Outpatient (BNVA) | payer MEDICARE, SELFPAY | PROVIDERS: PCP Internal Medicine; Visit Provider Internal Medicine ==

== ENCOUNTER 2023-07-06 08:19 | Outpatient (REF) | payer MEDICARE, SELFPAY ==
--- NOTE | ~2023-07-06 | US_ITS ---
EXAMINATION: US THYROID CLINICAL INFORMATION: Nontoxic single thyroid nodule. COMPARISON: Ultrasound soft tissue head/neck thyroid dated 07/03/2022 and 03/12/2021. TECHNIQUE: Linear transducer grayscale and color Doppler examination with attention to the region of the thyroid. FINDINGS: SIZE: Measurements of the thyroid lobes and nodules are given in sagittal, anteroposterior and transverse dimensions respectively. Right Thyroid Lobe: 4.8 x 2.4 x 2.1 cm, volume 12.7 mL. Previously 5.7 x 2.2 x 1.8 cm, volume 11.8 mL. Parenchyma: The gland echotexture is heterogeneous. Thyroid vascularity is normal. Left Thyroid Lobe: 4.9 x 2.3 x 2.1 cm, volume 12.4 mL. Previously 5.5 x 2.1 x 2.1 cm, volume 12.7 mL. Parenchyma: The gland echotexture is heterogeneous. Thyroid vascularity is normal. Isthmus: 0.5 cm in maximum AP dimension. Previously 0.6 cm. Estimated total number of nodules greater than or equal to 1 cm: 1. Lining Strap Closer nodules are described as follows: 1. Location: Left inferior/mid. Size: 0.9 x 0.7 x 0.8 cm, volume 0.3 mL. Previously: 1.1 x 0.9 x 0.8 cm, volume 0.4 mL. Nodule characteristics: Composition: Spongiform (0). Echogenicity: 0 Shape: 0 Margins: 0 Echogenic Foci: 0 ACR TI-RADS total points: 0 Previous: 3 ACR TI-RADS category: 1 Previous: 3 Significant change in size (>/= 20% in 2 dimensions and minimal increase of 2 mm or 50% or greater increase in volume): No Change in features: No Change in ACR TI-RADS risk category: Yes 2. Location: Right mid. Size: 1.6 x 1.4 x 1.3 cm, volume 1.4 mL. Previously: 2.5 x 1.8 x 1.2 cm, volume 2.8 mL. Nodule characteristics: Composition: Solid/almost completely solid (2). Echogenicity: Hypoechoic (2). Shape: Not taller than wide (0). Margins: Ill-defined (0). Echogenic Foci: None (0). ACR TI-RADS total points: 4 Previous: 6 ACR TI-RADS category: 4 Previous: 4 Significant change in size (>/= 20% in 2 dimensions and minimal increase of 2 mm or 50% or greater increase in volume): Yes. Decreased Change in features: More cystic and less solid Change in ACR TI-RADS risk category: Yes but decreased 3. Location: Isthmus superior left. Size: 0.3 x 0.3 x 0.4 cm, volume 0.02 mL. Previously: 0.3 x 0.3 x 0.4 cm, volume 0.02 mL. Nodule characteristics: Composition: Solid (2). Echogenicity: Hypoechoic (2). Shape: Not taller than wide (0). Margins: Smooth (0). Echogenic Foci: None (0). ACR TI-RADS total points: 4 Previous: 4 ACR TI-RADS category: 4 Previous: 4 Significant change in size (>/= 20% in 2 dimensions and minimal increase of 2 mm or 50% or greater increase in volume): No Change in features: No Change in ACR TI-RADS risk category: No 4. Location: Left mid/inferior. Size: 0.9 x 0.8 x 0.7 cm, volume 0.3 mL. Previously: 0.6 x 0.7 x 0.8 cm, volume 0.16 mL. Nodule characteristics: Composition: Solid (2). Echogenicity: Hypoechoic (2). Shape: Not taller than wide (0). Margins: Smooth (0). Echogenic Foci: None (0). ACR TI-RADS total points: 4 Previous: 4 ACR TI-RADS category: 4 Previous: 4 Significant change in size (>/= 20% in 2 dimensions and minimal increase of 2 mm or 50% or greater increase in volume): No Change in features: No Change in ACR TI-RADS risk category: No NODES: No lymphadenopathy is seen in the tissue surrounding the thyroid gland. US/US thyroid IMPRESSION: Heterogeneous slightly enlarged thyroid gland. Right mid thyroid nodule difficult to visualize and may be decreased in size and more cystic. Otherwise pulmonary nodules do not appear appreciably changed.. ACR TI-RADS RECOMMENDATION REFERENCE: Ultrasound-guided fine-needle aspiration, follow up ultrasound, no further followup. * TR1 (0 point) and TR2 (2 points): No FNA or followup * TR3 (3 points): FNA if more than or equal to 2.5 cm in maximum dimension, follow up ultrasound in 1, 3 and 5 years if 1.5 to 2.4 cm in maximum dimension. * TR4 (4-6 points): FNA if more than or equal to 1.5 cm in maximum dimension, follow up ultrasound in 1, 2, 3 and 5 years if 1 to 1.4 cm in maximum dimension. * TR5 (more than or equal to 7 points): FNA if more than or equal to 1 cm in maximum dimension, follow up ultrasound every year for 5 years if 0.5 to 0.9 cm in maximum dimension. * TR3, TR4 or TR5 nodules that are below the size threshold for follow up receive no followup.
== END 2023-07-06 08:20 | disposition home or self-care (01) ==
LOC: HO.US 08:19
PROVIDERS: PCP Internal Medicine; Visit Provider Internal Medicine
DX: E04.1 Nontoxic single thyroid nodule (principal)
CPT/HCPCS: 76536

== ENCOUNTER 2023-10-19 14:53 | Outpatient (AMB) | payer MEDICARE, SELFPAY ==
--- NOTE | 2023-10-19 15:03 | A.OFFVIS_ITS ---
Intake Vital Signs 10/19/23 15:04 Height 5 ft 5 in Weight 291 lb 3.69 oz BMI 48.5 BP 137/62 Blood Pressure Location Lt brachial Position Sitting Pulse 67 Pulse Source Pulse Oximeter Intake Visit Reasons: Thyroid nodule-#NOT IN SERV Intake Note: Patient present today for Thyroid nodule follow up visit. Metal Sprayer Machined Parts Required: No Accompanied by: Self / Same As Patient Allergies exenatide [Byetta] Allergy (Unknown, Verified 10/19/23 15:10) nausea rosuvastatin [Crestor] Allergy (Unknown, Verified 10/19/23 15:10) Unknown dulaglutide [From Trulicity] Adverse Reaction (Mild, Verified 10/19/23 15:10) Nausea lisinopril Adverse Reaction (Unknown, Verified 10/19/23 15:10) Cough dust, trees Allergy (Unknown, Uncoded 06/02/23 07:48) rhinitis HPI HPI Comments History of Present Illness Details 67 YO F with PMHx T2DM, HTN, HLD as well as a multinodular thyroid who is seen in F/U. She was previously followed by Radha De La Cruz.. The patient last saw Dr. Winslow on 06/02/2023. Today's visit focus on the thyroid nodule and not diabetes 2) Multinodular Thyroid: She had an episode of palpitations with lightheadedness which prompted her to go to the ED.? She had a CTA of the head and neck 01/17/2021 which revealed a 1.3 cm hypodense nodule within the L lobe of the thyroid.? She was subsequently referred to Endocrinology. She underwent FNA biopsy of her LLP 1.7 cm thyroid nodule 04/24/2021 with benign cytology. Denies any compressive symptoms.? Also denies any symptoms of hyper or hypothyroidism. Denies any history of head or neck irradiation.? Reports her Mother had a goiter and had thyroid surgery, but she is unsure if there was any cancer.? She had labs that showed a low TSH, but this was completed immediately after her FNA biopsy.? Repeat labs WNL. She also had imaging that revealed a dorsocervical fat pad and concern for westley's disease.? She underwent a 1 mg overnight DSST which was completely WNL. Thyroid US: 07/03/2022 Right Thyroid Lobe: 5.7 x 2.2 x 1.8 cm, volume 11.8 mL. Previously 4.9 x 2.6 x 1.8 cm, volume 12.1 mL. Parenchyma: The gland echotexture is heterogeneous. Thyroid vascularity is normal. Left Thyroid Lobe: 5.5 x 2.1 x 2.1 cm, volume 12.7 mL. Previously 5.2 x 2.1 x 2.2 cm, volume 12.5 mL. Parenchyma: The gland echotexture is heterogeneous. Thyroid vascularity is normal. Isthmus: 0.6 cm in maximum AP dimension. Previously 0.5 cm. Estimated total number of nodules greater than or equal to 1 cm: 2. comparison with previous exam is difficult. Measurement differences may be due to interobserver variation of nodule borders. Stopperer Assembler nodules are described as follows: 1.? Location: Left lower pole. ?? ? Size: 1.1 x 0.9 x 0.8 cm, volume 0.4 mL. ?? ? Previously: 1.7 x 1.4 x 1.7 cm, volume 2.2 mL. ?? ? Nodule characteristics: ?? ? Composition: Solid (2). ?? ? Echogenicity: Hyperechoic (1). ?? ? Shape: Not taller than wide (0). ?? ? Margins: Smooth (0). ?? ? Echogenic Foci: None (0). ?? ? ACR TI-RADS total points: 3 Previous: 3 ?? ? ACR TI-RADS category: 3 Previous: 3 ? Significant change in size (>/= 20% in 2 dimensions and minimal increase of 2 mm or 50% or greater increase in volume): ?? ? Change in features: ?? ? Change in ACR TI-RADS risk category: 2.? Location: Right mid pole. ?? ? Size: 2.5 x 1.8 x 1.2 cm, volume 2.8 mL. ?? ? Previously: 3.7 x 2.0 x 1.6 cm, volume 6.2 mL. ?? ? Nodule characteristics: ?? ? Composition: Solid (2). ?? ? Echogenicity: Isoechoic (1). ?? ? Shape: Taller than wide (3). ?? ? Margins: Ill-defined (0). ?? ? Echogenic Foci: None (0). ?? ? ACR TI-RADS total points: 6 Previous: 6 ?? ? ACR TI-RADS category: 4 Previous: 4 ? Significant change in size (>/= 20% in 2 dimensions and minimal increase of 2 mm or 50% or greater increase in volume): ?? ? Change in features: ?? ? Change in ACR TI-RADS risk category: 3.? Location: Isthmus/upper pole left. ?? ? Size: 0.3 x 0.3 x 0.4 cm, volume 0.02 mL. ?? ? Previously: Not documented. ?? ? Nodule characteristics: ?? ? Composition: Solid (2). ?? ? Echogenicity: Hypoechoic (2). ?? ? Shape: Not taller than wide (0). ?? ? Margins: Smooth (0). ?? ? Echogenic Foci: None (0). ?? ? ACR TI-RADS total points: 4 ?? ? ACR TI-RADS category: 4 ?? ? 4.? Location: Left mid pole. ?? ? Size: 0.6 x 0.7 x 0.8 cm, volume 0.16 mL. ?? ? Previously: Not documented. ?? ? Nodule characteristics: ?? ? Composition: Solid/almost completely solid (2). ?? ? Echogenicity: Hypoechoic (2). ?? ? Shape: Not taller than wide (0). ?? ? Margins: Smooth (0). ?? ? Echogenic Foci: None (0). ?? ? ACR TI-RADS total points: 4 ?? ? ACR TI-RADS category: 4 ?? ? NODES: No lymphadenopathy is seen in the tissue surrounding the thyroid gland. Labs: Laboratory Tests 01/14/22 05/20/23 05/20/23 07:10 07:58 07:58 Creatinine 0.83 Estimated GFR > 60 Hemoglobin A1c % 7.4 Triglycerides 164 Cholesterol 154 LDL Cholesterol Di rect HDL Cholesterol 41 25-OH Vitamin D To chepe 34.2 TSH 1.34 Free T4 0.86 Microalb/Creat Rat io 10.4 05/20/23 07:58 Creatinine Estimated GFR Hemoglobin A1c % Triglycerides Cholesterol LDL Cholesterol Di rect 90 HDL Cholesterol 25-OH Vitamin D To chepe TSH Free T4 Microalb/Creat Rat io Recent thyroid ultrasound showed no change in the size of the nodules [facility] Medical History BMI 45.0-49.9, adult Chronic sinusitis Depression Disc degeneration Essential hypertension Fatty liver Gastroenteritis GERD (gastroesophageal reflux disease) HLD (hyperlipidemia) HTN (hypertension) Hyperlipidemia LDL goal <100 Incontinence Insomnia Morbid obesity Multiple lipomas Obesity due to excess calories Rhinitis Rosacea Thyroid nodule Type 2 diabetes mellitus with diabetic neuropathy, unspecified Type 2 diabetes mellitus with hyperglycemia Vitamin D deficiency Surgical History Hx of cataract surgery Hx of section Hx of colonoscopy Hx of mammogram Family History Mother Goiter Father No problems noted. Maternal Uncle Diabetes Maternal Aunt Diabetes Sister Healthy adult Son Healthy adult Social History Household Members: Children Alcohol intake: never Patient Tobacco Use Status: Never used Tobacco Physical Exam Vital Signs: Last Vital Signs Pulse 67 10/19/23 15:04 BP 137/62 10/19/23 15:04 BMI result Body Mass Index 48.5 Const Other: Thyroid gland is normal size weighs about 30 g . There are no thyroid nodules palpated Assessment & Plan Assessment & Plan (1) Thyroid nodule: Code(s): E04.1 - Nontoxic single thyroid nodule Plan: This is a 67-year-old white female with a history of thyroid nodule incidentally noted on her recent CT of the neck. She underwent FNA biopsy of her LLP 1.7 cm thyroid nodule 04/24/2021 with benign cytology. Images of her thyroid US dated 07/03/2022 were independently reviewed and what was measured as a 2.5 cm L mid pole nodule is just an area of heterogeneity and not a true nodule. No indication for repeat FNA biopsy at this time. Recent thyroid ultrasound showed no change in the size of the nodules. Patient appears to be clinically and biochemically euthyroid At this point, patient returned to the care of her primary care provider who can check a thyroid ultrasound in about 2 years time. If is any change in the size or characteristics of the nodules, patient referred back to endocrine Coding Level of Care Code Est Pt Level 3 (22820) Diagnoses Thyroid nodule E04.1
[2023-10-19 15:04] VITALS: BP 137/62; PULSE 67; BMI 48.5
== END 2023-10-19 15:34 | disposition home or self-care (01) ==
PROVIDERS: PCP Internal Medicine; Visit Provider Internal Medicine Endocrinology, Diabetes & Metabolism
DX: E04.1 Nontoxic single thyroid nodule (principal)
CPT/HCPCS: 99213

== ENCOUNTER → 2023-10-19 14:53 | Outpatient (BNVA) | payer MEDICARE, SELFPAY | PROVIDERS: PCP Internal Medicine; Visit Provider Internal Medicine Endocrinology, Diabetes & Metabolism | DX: E04.1 Nontoxic single thyroid nodule (principal) | CPT/HCPCS: 99212 ==

== ENCOUNTER 2025-10-03 08:33 | Outpatient (AMB) | payer MEDICARE, SELFPAY ==
--- NOTE | 2025-10-03 08:35 | A.OFFVIS_ITS ---
Vital Signs 10/03/25 08:42 Height 5 ft 5 in Weight 283 lb 11.759 oz BMI 47.2 BP 130/68 Blood Pressure Location Rt brachial Position Sitting Pulse 70 Pulse Source Pulse Oximeter Pulse Oximetry (%) 97 Oxygen Delivery Method Room Air Intake Visit Reasons: Thyroid nodule Intake Note: Patient present today for Thyroid nodule follow up visit. Allergies exenatide (Byetta) Allergy (Unknown, Verified 10/03/25 08:42) nausea rosuvastatin (Crestor) Allergy (Unknown, Verified 10/03/25 08:42) Unknown dulaglutide (From Trulicity) Adverse Reaction (Mild, Verified 10/03/25 08:42) Nausea lisinopril Adverse Reaction (Unknown, Verified 10/03/25 08:42) Cough dust, trees Allergy (Unknown, Uncoded 06/02/23 07:48) rhinitis HPI Comments Details: 69 YO F with PMHx T2DM, HTN, HLD as well as a multinodular thyroid who is seen in F/U. .. Today's visit focus on the thyroid nodule and not diabetes 2) Multinodular Thyroid: She had an episode of palpitations with lightheadedness which prompted her to go to the ED.? She had a CTA of the head and neck 01/17/2021 which revealed a 1.3 cm hypodense nodule within the L lobe of the thyroid.? She was subsequently referred to Endocrinology. She underwent FNA biopsy of her LLP 1.7 cm thyroid nodule 04/24/2021 with benign cytology. Denies any compressive symptoms.? Also denies any symptoms of hyper or hypothyroidism. Denies any history of head or neck irradiation.? Reports her Mother had a goiter and had thyroid surgery, but she is unsure if there was any cancer.? She had labs that showed a low TSH, but this was completed immediately after her FNA biopsy.? Repeat labs WNL. She also had imaging that revealed a dorsocervical fat pad and concern for westley's disease.? She underwent a 1 mg overnight DSST which was completely WNL. Thyroid US: 07/03/2022 Right Thyroid Lobe: 5.7 x 2.2 x 1.8 cm, volume 11.8 mL. Previously 4.9 x 2.6 x 1.8 cm, volume 12.1 mL. Parenchyma: The gland echotexture is heterogeneous. Thyroid vascularity is normal. Left Thyroid Lobe: 5.5 x 2.1 x 2.1 cm, volume 12.7 mL. Previously 5.2 x 2.1 x 2.2 cm, volume 12.5 mL. Parenchyma: The gland echotexture is heterogeneous. Thyroid vascularity is normal. Isthmus: 0.6 cm in maximum AP dimension. Previously 0.5 cm. Estimated total number of nodules greater than or equal to 1 cm: 2. comparison with previous exam is difficult. Measurement differences may be due to interobserver variation of nodule borders. Mica Miner nodules are described as follows: 1.? Location: Left lower pole. ?? ? Size: 1.1 x 0.9 x 0.8 cm, volume 0.4 mL. ?? ? Previously: 1.7 x 1.4 x 1.7 cm, volume 2.2 mL. ?? ? Nodule characteristics: ?? ? Composition: Solid (2). ?? ? Echogenicity: Hyperechoic (1). ?? ? Shape: Not taller than wide (0). ?? ? Margins: Smooth (0). ?? ? Echogenic Foci: None (0). ?? ? ACR TI-RADS total points: 3 Previous: 3 ?? ? ACR TI-RADS category: 3 Previous: 3 ? Significant change in size (>/= 20% in 2 dimensions and minimal increase of 2 mm or 50% or greater increase in volume): ?? ? Change in features: ?? ? Change in ACR TI-RADS risk category: 2.? Location: Right mid pole. ?? ? Size: 2.5 x 1.8 x 1.2 cm, volume 2.8 mL. ?? ? Previously: 3.7 x 2.0 x 1.6 cm, volume 6.2 mL. ?? ? Nodule characteristics: ?? ? Composition: Solid (2). ?? ? Echogenicity: Isoechoic (1). ?? ? Shape: Taller than wide (3). ?? ? Margins: Ill-defined (0). ?? ? Echogenic Foci: None (0). ?? ? ACR TI-RADS total points: 6 Previous: 6 ?? ? ACR TI-RADS category: 4 Previous: 4 ? Significant change in size (>/= 20% in 2 dimensions and minimal increase of 2 mm or 50% or greater increase in volume): ?? ? Change in features: ?? ? Change in ACR TI-RADS risk category: 3.? Location: Isthmus/upper pole left. ?? ? Size: 0.3 x 0.3 x 0.4 cm, volume 0.02 mL. ?? ? Previously: Not documented. ?? ? Nodule characteristics: ?? ? Composition: Solid (2). ?? ? Echogenicity: Hypoechoic (2). ?? ? Shape: Not taller than wide (0). ?? ? Margins: Smooth (0). ?? ? Echogenic Foci: None (0). ?? ? ACR TI-RADS total points: 4 ?? ? ACR TI-RADS category: 4 ?? ? 4.? Location: Left mid pole. ?? ? Size: 0.6 x 0.7 x 0.8 cm, volume 0.16 mL. ?? ? Previously: Not documented. ?? ? Nodule characteristics: ?? ? Composition: Solid/almost completely solid (2). ?? ? Echogenicity: Hypoechoic (2). ?? ? Shape: Not taller than wide (0). ?? ? Margins: Smooth (0). ?? ? Echogenic Foci: None (0). ?? ? ACR TI-RADS total points: 4 ?? ? ACR TI-RADS category: 4 ?? ? NODES: No lymphadenopathy is seen in the tissue surrounding the thyroid gland. Labs: Laboratory Tests 01/14/22 05/20/23 05/20/23 07:10 07:58 07:58 Creatinine 0.83 Estimated GFR > 60 Hemoglobin A1c % 7.4 Triglycerides 164 Cholesterol 154 LDL Cholesterol Direct HDL Cholesterol 41 25-OH Vitamin D Total 34.2 TSH 1.34 Free T4 0.86 Microalb/Creat Ratio 10.4 05/20/23 07:58 Creatinine Estimated GFR Hemoglobin A1c % Triglycerides Cholesterol LDL Cholesterol Direct 90 HDL Cholesterol 25-OH Vitamin D Total TSH Free T4 Microalb/Creat Ratio Previous thyroid ultrasound few yrs ago showed no change in the size of the nodules [facility] Medical History BMI 45.0-49.9, adult Chronic sinusitis Depression Disc degeneration Essential hypertension Fatty liver Gastroenteritis GERD (gastroesophageal reflux disease) HLD (hyperlipidemia) HTN (hypertension) Hyperlipidemia LDL goal <100 Incontinence Insomnia Morbid obesity Multiple lipomas Obesity due to excess calories Rhinitis Rosacea Thyroid nodule Type 2 diabetes mellitus with diabetic neuropathy, unspecified Type 2 diabetes mellitus with hyperglycemia Vitamin D deficiency Surgical History Hx of mammogram Hx of colonoscopy Hx of cataract surgery Hx of section Family History Mother Goiter Father No problems noted. Maternal Uncle Diabetes Maternal Aunt Diabetes Sister Healthy adult Son Healthy adult Social History Household Members: Children Alcohol intake: never Patient Tobacco Use Status: Never used Tobacco Physical Exam Vital Signs: Last Vital Signs Pulse 70 10/03/25 08:42 BP 130/68 10/03/25 08:42 Pulse Ox 97 10/03/25 08:42 Oxygen Delivery Method Room Air 10/03/25 08:42 BMI result Body Mass Index 47.2 Const Other: Thyroid gland is normal size weighs about 30 g . There are no thyroid nodules palpated Assessment & Plan Assessment & Plan (1) Thyroid nodule: Code(s): E04.1 - Nontoxic single thyroid nodule Category: Medical Plan: This is a 69-year-old white female with a history of thyroid nodule incidentally noted on her recent CT of the neck. She underwent FNA biopsy of her LLP 1.7 cm thyroid nodule 04/24/2021 with benign cytology. Images of her thyroid US dated 07/03/2022 were independently reviewed and what was measured as a 2.5 cm L mid pole nodule is just an area of heterogeneity and not a true nodule. No indication for repeat FNA biopsy at this time. Recent thyroid ultrasound showed no change in the size of the nodules. Patient appears to be clinically euthyroid Plan is to check TSH and free T4. Assuming above is normal, will have patient follow up with Dr. Levy who has expertise in thyroid ultrasound and who can Re image the thyroid and manage appropriately Orders: Orders Free T4 (Free Thyroxine) Today E04.1 - Nontoxic single thyroid nodule Thyroid Stimulating Hormone Today E04.1 - Nontoxic single thyroid nodule Coding Level of Care Code Est Pt Level 3 (80269) Diagnoses Thyroid nodule E04.1
--- NOTE | 2025-10-03 08:41 | A.OFFVIS_ITS ---
Vital Signs 10/03/25 08:42 Height 5 ft 5 in Weight 283 lb 11.759 oz BMI 47.2 BP 130/68 Blood Pressure Location Rt brachial Position Sitting Pulse 70 Pulse Source Pulse Oximeter Pulse Oximetry (%) 97 Oxygen Delivery Method Room Air Intake Visit Reasons: Thyroid nodule Intake Note: Patient present today for Thyroid nodule follow up visit. Allergies exenatide (Byetta) Allergy (Unknown, Verified 10/03/25 08:42) nausea rosuvastatin (Crestor) Allergy (Unknown, Verified 10/03/25 08:42) Unknown dulaglutide (From Trulicity) Adverse Reaction (Mild, Verified 10/03/25 08:42) Nausea lisinopril Adverse Reaction (Unknown, Verified 10/03/25 08:42) Cough dust, trees Allergy (Unknown, Uncoded 06/02/23 07:48) rhinitis [facility] Medical History BMI 45.0-49.9, adult Chronic sinusitis Depression Disc degeneration Essential hypertension Fatty liver Gastroenteritis GERD (gastroesophageal reflux disease) HLD (hyperlipidemia) HTN (hypertension) Hyperlipidemia LDL goal <100 Incontinence Insomnia Morbid obesity Multiple lipomas Obesity due to excess calories Rhinitis Rosacea Thyroid nodule Type 2 diabetes mellitus with diabetic neuropathy, unspecified Type 2 diabetes mellitus with hyperglycemia Vitamin D deficiency Surgical History Hx of mammogram Hx of colonoscopy Hx of cataract surgery Hx of section Family History Mother Goiter Father No problems noted. Maternal Uncle Diabetes Maternal Aunt Diabetes Sister Healthy adult Son Healthy adult Social History Household Members: Children Alcohol intake: never Patient Tobacco Use Status: Never used Tobacco Physical Exam Vital Signs: Last Vital Signs Pulse 70 10/03/25 08:42 BP 130/68 10/03/25 08:42 Pulse Ox 97 10/03/25 08:42 Oxygen Delivery Method Room Air 10/03/25 08:42 BMI result Body Mass Index 47.2 Assessment & Plan Assessment & Plan (1) Thyroid nodule: Code(s): E04.1 - Nontoxic single thyroid nodule Category: Medical Orders: Orders Free T4 (Free Thyroxine) Today E04.1 - Nontoxic single thyroid nodule Thyroid Stimulating Hormone Today E04.1 - Nontoxic single thyroid nodule Coding Diagnoses Thyroid nodule E04.1
[2025-10-03 08:42] VITALS: BP 130/68; PULSE 70; O2SAT 97; BMI 47.2
--- OUTSIDE RECORDS SUMMARY | 2025-10-03 08:44 | XMS_ITS | Encounter Summary ---
Author Organization [facility] Address [address] [place] [phone] Phone Care Team Providers Care Area Captain Name Role Phone Unavailable Primary Care Provider Unavailabl e Encounter Details Date Type Department Care Team (Latest Contact Info) Description 04/14/2024 Transcribe Orders Virtual Department [address] [place] [address] Vamshi Henley MD [address] [place] [address] Arthritis (Primary Dx) Social History Tobacco Use Types Packs/Day Years Used Date Smoking Tobacco: Never Assessed Comments Unknown Sex and Gender Information Value Date Recorded Sex Assigned at Not on file Legal Sex Female 3:43 PM EDT Gender Identity Not on file Sexual Orientation Not on file documented as of this encounter Plan of Treatment Not on file documented as of this encounter Visit Diagnoses Diagnosis Arthritis- Primary Unspecified arthropathy, site unspecified documented in this encounter Additional Source Comments The information contained in this document represents components of the legal health record. It is not the complete legal health record.[facility]
--- OUTSIDE RECORDS SUMMARY | 2025-10-03 08:45 | XMS_ITS | Encounter Summary ---
Author Organization [employer] [facility] Address [address] [place] [address] Care Team Providers Care Durability Technician Name Role Phone Unavailable Primary Care Provider Unavailabl e Encounter Details Date Type Department Care Team (Latest Contact Info) Description 12/16/2018 Abstract C CONVERSIONS Dental, Provider, DDS Social History Tobacco Use Types Packs/Day Years Used Date Smoking Tobacco: Never Assessed Comments Unknown Sex and Gender Information Value Date Recorded Sex Assigned at Female 08/31/2022 10:27 AM EDT Legal Sex Female 10:27 AM EDT Gender Identity Female 08/31/2022 10:27 AM EDT Sexual Orientation Straight 08/31/2022 10 :27 AM EDT documented as of this encounter Plan of Treatment Not on file documented as of this encounter Visit Diagnoses Not on filedocumented in this encounter
--- OUTSIDE RECORDS SUMMARY | 2025-10-03 08:45 | XMS_ITS | Encounter Summary ---
Author Organization [employer] [facility] Address [address] [place] [address] [address] [place] [address] Care Team Providers Care Steam Shovel Operating Engineer Name Role Phone Unavailable Primary Care Provider Unavailabl e Encounter Details Date Type Department Care Team (Latest Contact Info) Description 01/03/2020 Abstract C CONVERSIONS Dental, Provider, DDS Social [...]
--- OUTSIDE RECORDS SUMMARY | 2025-10-03 08:45 | XMS_ITS | Encounter Summary ---
Author Organization [facility] Address [address] [place] [phone] Phone Care Team Providers Care Seafood Preparer Name Role Phone Unavailable Primary Care Provider Unavailabl e Encounter Details Date Type Department Care Team (Late st Contact Info) Description 04/14/2024 Ancillary Orders Virtual Department [address] [place] [address] Vamshi Henley MD [address] [place] [address] Arthritis (Primary Dx); Neck pain Social History Tobacco Use Types Packs/Day Years [...] Diagnosis Arthritis- Primary Unspecified arthropathy, site unspecified Neck pain Cervicalgia documented in this encounter Additional Source Comments The information contained in this document represents components of the legal health record. It is not the complete legal health record.[facility]
--- OUTSIDE RECORDS SUMMARY | 2025-10-03 08:45 | XMS_ITS | Clinical Summary ---
Author Organization [employer] Address [address] [place] [address] [address] [place] [address] Care Team Providers Care Chief Merchandising Officer Name Role Phone Unavailable Primary Care Provider Unavailabl e Social History Tobacco Use Types Packs/Day Years Used Date Smoking Tobacco: Never Assessed Comments Unknown Sex and Gender Information Value Date Recorded Sex Assigned at Female 08/31/2022 10:27 AM EDT Legal Sex Female 10:27 AM EDT Gender Identity Female 08/31/2022 10:27 AM EDT Sexual Orientation Straight 08/31/2022 10 :27 AM EDT Last Filed Vital Signs Vital Sign Reading Time Taken Comments Blood Pressure 138/70 10/11/2019 12:12 AM EST Pulse - - Temperature - - Respiratory Rate - - Oxygen Saturation - - Inhaled Oxygen Concentration - - Weight - - Height - - Body Mass Index - - Plan of Treatment Health Maintenance Due Date Last Done Comments CT Colonography 1955 Colonoscopy 1955 Colorectal Cancer Screening 1955 Depression Screening 1955 FIT DNA/Cologuard 1955 FIT 1955 FOBT 1955 Sigmoidoscopy 1955 Alcohol/Substance Use Screening 1967 Tobacco Screening 1967 DTaP/Tdap/Td Vaccines (1 - Tdap) 1974 Mammogram 1995 Pneumococcal Vaccine: 50+ Ye ars (1 of 1 - PCV) 2005 Zoster Vaccines (1 of 2) 2005 COVID-19 Vaccine ( - 2024-2 6 season) 2025 Influenza Vaccine (#1) 2025 RSV Patients and Pa tients Aged 60 years or older (1 - 1-dose 75+ series) 2030 HIB Vaccines Aged Out No longer eligi ble based on patient's age to complete this topic HPV Vaccines Aged Out No longer eligi ble based on patient's age to complete this topic Hepatitis A Vaccines Aged Out No long er eligible based on patient's age to complete this topic Hepatitis B Vaccines Aged Out No long er eligible based on patient's age to complete this topic IPV Vaccines Aged Out No longer eligi ble based on patient's age to complete this topic Meningococcal B Vaccine Aged Out No l onger eligible based on patient's age to complete this topic Meningococcal Vaccine Aged Out No lavon magda eligible based on patient's age to complete this topic RSV under 20 months Aged Out No longe r eligible based on patient's age to complete this topic Rotavirus Vaccines Aged Out No longer eligible based on patient's age to complete this topic
--- OUTSIDE RECORDS SUMMARY | 2025-10-03 08:45 | XMS_ITS | Clinical Summary ---
Author Organization [facility] Address [address] [phone] Phone Care Team Providers Care Body Repairer Name Role Phone Unavailable Primary Care Provider Unavailabl e Social History Tobacco Use Types Packs/Day Years Used Date Smoking Tobacco: Never Assessed Comments Unknown Sex and Gender Information Value Date Recorded Sex Assigned at Not on file Legal Sex Female 3:43 PM EDT Gender Identity Not on file Sexual Orientation Not on file Plan of Treatment Not on file Medical Devices Not on file Additional Source Comments The information contained in this document represents components of the legal health record. It is not the complete legal health record.[facility]
--- NOTE | 2025-10-03 08:48 | A.OFFVIS_ITS ---
Vital Signs 10/03/25 08:42 Height 5 ft 5 in Weight 283 lb 11.759 oz BMI 47.2 BP 130/68 Blood Pressure Location Rt brachial Position Sitting Pulse 70 Pulse Source Pulse Oximeter Pulse Oximetry (%) 97 Oxygen Delivery Method Room Air Intake Visit Reasons: Thyroid nodule Intake Note: Patient present today for Thyroid nodule follow up visit. Best Worker Required: No Accompanied by: Self / Same As Patient Allergies exenatide (Byetta) Allergy (Unknown, Verified 10/03/25 08:42) nausea rosuvastatin (Crestor) Allergy (Unknown, Verified 10/03/25 08:42) Unknown dulaglutide (From Trulicity) Adverse Reaction (Mild, Verified 10/03/25 08:42) Nausea lisinopril Adverse Reaction (Unknown, Verified 10/03/25 08:42) Cough dust, trees Allergy (Unknown, Uncoded 06/02/23 07:48) rhinitis HPI Comments Details: 69 YO F with PMHx T2DM, HTN, HLD as well as a multinodular thyroid who is seen in F/U. .. Today's visit focus on the thyroid nodule and not diabetes 2) Multinodular Thyroid: She had an episode of palpitations with lightheadedness which prompted her to go to the ED.? She had a CTA of the head and neck 01/17/2021 which revealed a 1.3 cm hypodense nodule within the L lobe of the thyroid.? She was subsequently referred to Endocrinology. She underwent FNA biopsy of her LLP 1.7 cm thyroid nodule 04/24/2021 with benign cytology. Denies any compressive symptoms.? Also denies any symptoms of hyper or hypothyroidism. Denies any history of head or neck irradiation.? Reports her Mother had a goiter and had thyroid surgery, but she is unsure if there was any cancer.? She had labs that showed a low TSH, but this was completed immediately after her FNA biopsy.? Repeat labs WNL. She also had imaging that revealed a dorsocervical fat pad and concern for westley's disease.? She underwent a 1 mg overnight DSST which was completely WNL. Thyroid US: 07/03/2022 Right Thyroid Lobe: 5.7 x 2.2 x 1.8 cm, volume 11.8 mL. Previously 4.9 x 2.6 x 1.8 cm, volume 12.1 mL. Parenchyma: The gland echotexture is heterogeneous. Thyroid vascularity is normal. Left Thyroid Lobe: 5.5 x 2.1 x 2.1 cm, volume 12.7 mL. Previously 5.2 x 2.1 x 2.2 cm, volume 12.5 mL. Parenchyma: The gland echotexture is heterogeneous. Thyroid vascularity is normal. Isthmus: 0.6 cm in maximum AP dimension. Previously 0.5 cm. Estimated total number of nodules greater than or equal to 1 cm: 2. comparison with previous exam is difficult. Measurement differences may be due to interobserver variation of nodule borders. Trauma Manager nodules are described as follows: 1.? Location: Left lower pole. ?? ? Size: 1.1 x 0.9 x 0.8 cm, volume 0.4 mL. ?? ? Previously: 1.7 x 1.4 x 1.7 cm, volume 2.2 mL. ?? ? Nodule characteristics: ?? ? Composition: Solid (2). ?? ? Echogenicity: Hyperechoic (1). ?? ? Shape: Not taller than wide (0). ?? ? Margins: Smooth (0). ?? ? Echogenic Foci: None (0). ?? ? ACR TI-RADS total points: 3 Previous: 3 ?? ? ACR TI-RADS category: 3 Previous: 3 ? Significant change in size (>/= 20% in 2 dimensions and minimal increase of 2 mm or 50% or greater increase in volume): ?? ? Change in features: ?? ? Change in ACR TI-RADS risk category: 2.? Location: Right mid pole. ?? ? Size: 2.5 x 1.8 x 1.2 cm, volume 2.8 mL. ?? ? Previously: 3.7 x 2.0 x 1.6 cm, volume 6.2 mL. ?? ? Nodule characteristics: ?? ? Composition: Solid (2). ?? ? Echogenicity: Isoechoic (1). ?? ? Shape: Taller than wide (3). ?? ? Margins: Ill-defined (0). ?? ? Echogenic Foci: None (0). ?? ? ACR TI-RADS total points: 6 Previous: 6 ?? ? ACR TI-RADS category: 4 Previous: 4 ? Significant change in size (>/= 20% in 2 dimensions and minimal increase of 2 mm or 50% or greater increase in volume): ?? ? Change in features: ?? ? Change in ACR TI-RADS risk category: 3.? Location: Isthmus/upper pole left. ?? ? Size: 0.3 x 0.3 x 0.4 cm, volume 0.02 mL. ?? ? Previously: Not documented. ?? ? Nodule characteristics: ?? ? Composition: Solid (2). ?? ? Echogenicity: Hypoechoic (2). ?? ? Shape: Not taller than wide (0). ?? ? Margins: Smooth (0). ?? ? Echogenic Foci: None (0). ?? ? ACR TI-RADS total points: 4 ?? ? ACR TI-RADS category: 4 ?? ? 4.? Location: Left mid pole. ?? ? Size: 0.6 x 0.7 x 0.8 cm, volume 0.16 mL. ?? ? Previously: Not documented. ?? ? Nodule characteristics: ?? ? Composition: Solid/almost completely solid (2). ?? ? Echogenicity: Hypoechoic (2). ?? ? Shape: Not taller than wide (0). ?? ? Margins: Smooth (0). ?? ? Echogenic Foci: None (0). ?? ? ACR TI-RADS total points: 4 ?? ? ACR TI-RADS category: 4 ?? ? NODES: No lymphadenopathy is seen in the tissue surrounding the thyroid gland. Labs: Laboratory Tests 01/14/22 05/20/23 05/20/23 07:10 07:58 07:58 Creatinine 0.83 Estimated GFR > 60 Hemoglobin A1c % 7.4 Triglycerides 164 Cholesterol 154 LDL Cholesterol Direct HDL Cholesterol 41 25-OH Vitamin D Total 34.2 TSH 1.34 Free T4 0.86 Microalb/Creat Ratio 10.4 05/20/23 07:58 Creatinine Estimated GFR Hemoglobin A1c % Triglycerides Cholesterol LDL Cholesterol Direct 90 HDL Cholesterol 25-OH Vitamin D Total TSH Free T4 Microalb/Creat Ratio Previous thyroid ultrasound few yrs ago showed no change in the size of the nodules. No obstructive dx [facility] Medical History BMI 45.0-49.9, adult Chronic sinusitis Depression Disc degeneration Essential hypertension Fatty liver Gastroenteritis GERD (gastroesophageal reflux disease) HLD (hyperlipidemia) HTN (hypertension) Hyperlipidemia LDL goal <100 Incontinence Insomnia Morbid obesity Multiple lipomas Obesity due to excess calories Rhinitis Rosacea Thyroid nodule Type 2 diabetes mellitus with diabetic neuropathy, unspecified Type 2 diabetes mellitus with hyperglycemia Vitamin D deficiency Surgical History Hx of mammogram Hx of colonoscopy Hx of cataract surgery Hx of section Family History Mother Goiter Father No problems noted. Maternal Uncle Diabetes Maternal Aunt Diabetes Sister Healthy adult Son Healthy adult Social History Household Members: Children Alcohol intake: never Patient Tobacco Use Status: Never used Tobacco Physical Exam Vital Signs: Last Vital Signs Pulse 70 10/03/25 08:42 BP 130/68 10/03/25 08:42 Pulse Ox 97 10/03/25 08:42 Oxygen Delivery Method Room Air 10/03/25 08:42 BMI result Body Mass Index 47.2 Assessment & Plan Assessment & Plan (1) Thyroid nodule: Code(s): E04.1 - Nontoxic single thyroid nodule Category: Medical Plan: This is a 69-year-old white female with a history of thyroid nodule inci dentally noted on her recent CT of the neck. She underwent FNA biopsy of her LLP 1.7 cm thyroid nodule 04/24/2021 with benign cytology. Images of her thyroid US dated 07/03/2022 were independently reviewed and what was measured as a 2.5 cm L mid pole nodule is just an area of heterogeneity and not a true nodule. No indication for repeat FNA biopsy at this time. Recent thyroid ultrasound showed no change in the size of the nodules. Patient appears to be clinically euthyroid Plan is to check TSH and free T4. Assuming above is normal, will have patient follow up with Dr. Levy who has expertise in thyroid ultrasound and who can Re image the thyroid and manage appropriately Orders: Orders Free T4 (Free Thyroxine) Today E04.1 - Nontoxic single thyroid nodule Thyroid Stimulating Hormone Today E04.1 - Nontoxic single thyroid nodule Coding Diagnoses Thyroid nodule E04.1
== END 2025-10-03 09:02 | disposition home or self-care (01) ==
LOC: HO.ENCR 08:34
PROVIDERS: PCP Internal Medicine; Visit Provider Internal Medicine Endocrinology, Diabetes & Metabolism
DX: E04.1 Nontoxic single thyroid nodule (principal)
CPT/HCPCS: 99213

== ENCOUNTER 2025-10-03 09:07 | Outpatient (REF) | payer MEDICARE, SELFPAY ==
[2025-10-03 11:20] LABS: Free T4 (Free Thyroxine) 0.97 ng/dL (0.71-1.85); Thyroid Stimulating Hormone 1.16 uIU/mL (0.32-4.0)
== END 2025-10-03 09:08 | disposition home or self-care (01) ==
LOC: HO.10HDL 09:07
PROVIDERS: Visit Provider Internal Medicine Endocrinology, Diabetes & Metabolism
DX: E04.1 Nontoxic single thyroid nodule (principal)
CPT/HCPCS: 36415; 84439; 84443; 99212